=== PATIENT | male | born 2000 | race Caucasian/White ===

== ENCOUNTER 2023-07-20 16:22 | Emergency (ER) | payer OTHER, SELFPAY ==
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
--- NOTE | ~2023-07-20 | XR_ITS ---
EXAM: XR thoracic spine 3V DATE: 07/20/2023 18:37 HISTORY: mid back pain . COMPARISON: None available. FINDINGS: Mild spinal asymmetry. Vertebral body alignment intact. Vertebral body heights preserved. No disc space narrowing. No traumatic malalignment or fracture. Visualized lung parenchyma is clear. IMPRESSION: No acute or chronic fracture or traumatic malalignment detected in the thoracic spine. Reviewed, dictated and finalized at location K.
[2023-07-20 16:25] VITALS: BP 161/81; PULSE 83; RESP 18; TEMP 36.2; O2SAT 99
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
== END 2023-07-20 19:05 | disposition home or self-care (01) ==
LOC: ANHED 19:08
PROVIDERS: Emergency Provider Physician Assistant
DX: M54.6 Pain in thoracic spine (principal)
CPT/HCPCS: 72040; 72072; 99283

== ENCOUNTER 2023-10-20 07:48 | Emergency (ER) | payer SELFPAY ==
[2023-10-20 07:53] VITALS: BP 144/119; PULSE 68; RESP 16; TEMP 36.7; O2SAT 100
--- NOTE | 2023-10-20 08:29 | ED.ALLEREA ---
HPI - Allergic Reaction General Chief complaint: Allergic Reaction Stated complaint: possible allergic reaction History of Present Illness HPI narrative: 23-year-old male presenting emergency department for evaluation for a suspected allergic reaction. Patient states at approximately 6:00 a.m. he had some wheat thins and some humus and afterwards started feeling he is having some throat swelling. Patient has no prior history of allergic reactions to food, has had both of these foods previously but does states it is a new brand of humus. Patient denies any new medications, new perfumes, new detergents. Patient states he did take a half a p.o. Benadryl and did begin to feel improved. Patient denies any other significant past medical history. Related Data Allergies Allergy/AdvReac Type Severity Reaction Status Date / Time No Known Allergies Allergy Verified 07/20/23 16:28 Review of Systems Review of Systems: All systems reviewed & are unremarkable except as noted in HPI and below Exam Narrative: APPEARANCE: Well appearing, no pain, no distress, well-nourished. HEAD: normocephalic, atraumatic. EYES: PERRLA/EOMI, conjunctivae clear. NOSE: Normal no drainage EARS:TMS clear with good light reflex. THROAT: Pharynx clear, no exudate. NECK: Supple. No adenopathy, no masses. RESPIRATORY: Airway patent, respirations nonlabored. Clear to auscultation bilaterally, no rales, rhonchi, wheezing. CARDIOVASCULAR: Regular rate and rhythm without murmurs rubs or gallops. ABDOMINAL: Soft, nontender, nondistended, normal bowel sounds MUSCULOSKELETAL: Moves all extremities. Strength/ROM intact, No edema, No calf tenderness. NEURO: Alert. Cranial nerves II through XII intact. Grossly intact SKIN: Warm, dry. Normal Color Course Course Emergency Course: Patient felt improved with treatment. Vital Signs Vital signs: Vital Signs Temperature 98.0 F 10/20/23 07:53 Pulse Rate 68 10/20/23 07:53 Respiratory Rate 16 10/20/23 07:53 Blood Pressure 144/119 H 10/20/23 07:53 Pulse Oximetry 100 10/20/23 07:53 Oxygen Delivery Room Air 10/20/23 07:53 Temperature 98.0 F 10/20/23 07:53 Pulse Rate 68 10/20/23 07:53 Respiratory Rate 16 10/20/23 07:53 Blood Pressure 144/119 H 10/20/23 07:53 Pulse Oximetry 100 10/20/23 07:53 Oxygen Delivery Room Air 10/20/23 07:57 MDM - Allergic Reaction MDM Narrative Medical decision making narrative: 23-year-old male presenting to the emergency department for evaluation for suspected allergic reaction. Patient declined steroids but was willing to try additional Benadryl. Patient states he does feel significantly improved compared to this morning. Patient denies any difficulty breathing or swallowing during the exam and patient had no tongue swelling, lip swelling or hives. On re-evaluation patient states that he does feel significantly improved. Patient was advised to take a weight appropriate dose of Benadryl. Patient declined steroids. Differential Diagnosis Differential diagnosis: Likely anaphylaxis, allergic reaction, angioedema, contact dermatitis, adverse reaction to drug, viral enanthem and urticaria Discharge Plan Discharge Clinical Impression: Allergic reaction Patient Disposition: Home, Self-Care Condition: Stable Instructions: Antibiotic Form, General Allergic Reaction (ED) Additional Instructions: Benadryl as needed for hives or itching. Be aware of any new foods, detergents or soaps or medications. Have close follow-up with your primary care physician. If you have any worsening symptoms and please call or return to the emergency department. Prescriptions: No Action cyclobenzaprine 10 mg tablet 10 mg PO HS PRN (Reason: muscle spasm) Qty: 10 0RF Follow-up/Referrals: UNKNOWN,DOCTOR [Primary Care Provider] -
[2023-10-20] MEDS: diphenhydrAMINE HCl INJ 50 MG/ML VIAL 25 MG IV PUSH (08:53)
== END 2023-10-20 10:11 | disposition home or self-care (01) ==
PROVIDERS: Emergency Provider Emergency Medicine
DX: T78.40XA Allergy, unspecified, initial encounter (principal); X58.XXXA Exposure to other specified factors, initial encounter
CPT/HCPCS: 96374; 99284; J1200

== ENCOUNTER 2024-03-12 02:21 | Emergency (ER) | payer OTHER, SELFPAY ==
--- NOTE | ~2024-03-12 | CT_ITS ---
EXAMINATION: CT abdomen pelvis w con DATE: 03/12/2024 04:09 INDICATION: Left lower quadrant abdominal pain TECHNIQUE: Computed tomography (CT) of the abdomen and pelvis was performed with 100 mL Omnipaque-350 intravenous contrast. Automated exposure control and iterative reconstruction technique were employe d. The dose-length product was 1207.13 mGy-cm. COMPARISON: None FINDINGS: Minimal atelectasis in the dependent lower lobes. Heart size is normal. No pericardial or pleural eff usion. Liver, gallbladder, spleen, pancreas, bilateral adrenal glands and kidneys are normal. Bowels including the appendix are normal. Bladder is normal. No free intraperitoneal gas or fluid. No pathol ogically enlarged abdominal or pelvic lymphadenopathy. A few Schmorl's nodes in the lumbar and lower thoracic spine. IMPRESSION: 1. No acute intra-abdominal/pelvic process. Reviewed, dictated and finalized at location A. [employer]
[2024-03-12 02:21] VITALS: BP 193/100; PULSE 87; RESP 14; TEMP 37.2; O2SAT 98
[2024-03-12] MEDS: SODIUM CHLORIDE 0.9% IV 1,000 ML 999 ML IV CONT (03:05)
[2024-03-12 03:23] LABS: Basophils Absolute Auto 0.1 K/mm3 (0.0-0.1); Basophils Percent Auto 0.7 % (0.2-1.2); Eosinophils Absolute Auto 0.3 K/mm3 (0-0.3); Eosinophils Percent Auto 2.6 % (0-4.4); Hematocrit 43.4 % (42.0-52.0); Hemoglobin 15.5 g/dL (14.0-18.0); Immature Granulocyte Absolute 0.12 K/mm3 (0.00-0.031); Immature Granulocyte Percent A 1.2 % (0-0.5); Lymphocytes Absolute Auto 1.65 K/mm3 (0.9-3.2); Mean Corpuscular HGB Conc 35.7 g/dl (32-36); Mean Corpuscular Volume 86.8 fl (80-100); Mean Platelet Volume 10.5 fl (7.4-10.4); Monocytes Absolute Auto 1.2 K/mm3 (0.1-0.6); Monocytes Percent Auto 11.8 % (2.6-8.5); Neutrophils Absolute Auto 6.5 K/mm3 (1.3-6.7); Neutrophils Percent Auto 66.7 % (45.5-73.1); Platelet Count Result 225 k/mm3 (150-375); Red Cell Distribution Width 12.6 % (11.5-14.5); White Blood Count 9.7 K/mm3 (4.5-10.0)
[2024-03-12 03:30] LABS: Add Urine Microscopic? NO; Appearance Urine Clear (Clear); Bilirubin Urine Negative (Negative); Blood Urine Negative (Negative); Color Urine Yellow (Yellow); Glucose Urine UA Negative (Negative); Ketones Urine Trace mg/dL (Negative); Leukocyte Esterase Ur Negative LEU/UL (Negative); Nitrate Urine Negative (Negative); Protein Urine Negative (Negative); Specific Grav Ur 1.018 (1.001-1.035); Urobilinogen Urine 0.2 mg/dL (<2.0); pH Urine 5.5 (5.0-9.0)
[2024-03-12 03:32] LABS: Alanine Aminotransferase 29 U/L (6-50); Albumin Level 4.4 g/dL (3.5-5.1); Alkaline Phosphatase 53 U/L (38-126); Anion Gap 3 mmol/L (4-12); Aspartate Amino Transferase 28 U/L (17-59); Bilirubin,Total 0.5 mg/dL (0.2-1.3); Blood Urea Nitrogen 10 mg/dL (9-20); Calcium 9.1 mg/dL (8.4-10.2); Carbon Dioxide 27 mmol/L (22-30); Chloride 106 mmol/L (98-107); Estimated CRCL calculation 148 ml/min; Estimated Glomerular Filt Rate > 60; Glucose 108 mg/dL (65-110); Lipase 71 U/L (23-300); Potassium 3.9 mmol/L (3.4-5.0); Sodium 136 mmol/L (137-145)
[2024-03-12 03:34] LABS: INR 1.1; Partial Thromboplastin Time 24.3 Seconds (22.3-36.8); Prothrombin Time 14.7 Seconds (11.1-14.7)
--- NOTE | 2024-03-12 03:34 | ED_ITS ---
HPI - General Adult General Chief complaint: Extremity Problem,Nontraumatic Stated complaint: L hip pain Time Seen by Provider: 03/12/24 02:25 History of Present Illness HPI narrative: Patient is a 19 for old gentleman who presents emergency department chief complaint of left groin/hip pain. The patient reports that he has had no trauma reports that he little bit of drinking this evening and reports that he had sudden onset of sharp pain in his left hip area patient states the pain is in the left inguinal area and radiates into the left anterior thigh. Patient reports no numbness or tingling denies footdrop denies pain in his foot. Related Data Allergies Allergy/AdvReac Type Severity Reaction Status Date / Time No Known Allergies Allergy Verified 07/20/23 16:28 Review of Systems 2 Review of Systems: A 10 system review of systems was completed on the patient and is negative except for what is stated in the HPI. Nursing and ancillary documentation was reviewed. Exam 2 Narrative: GENERAL: Well-appearing, well-nourished, and in no acute distress. HEAD: Normocephalic, atraumatic. EYES: PERRLA and EOMI. ENT: Nares clear, no rhinorrhea or epistaxis. Mucous membranes moist. NECK: Supple. CHEST: Clear to auscultation. No respiratory distress. HEART: Regular rate and rhythm. No murmur heard. Normal peripheral pulses. ABDOMEN: Soft, tenderness to palpation left lower quadrant/inguinal area no appreciable mass, nondistended, normal active bowel sounds. EXTREMITIES: Normal range of motion tenderness in the left anterior thigh. No edema. Intact dorsalis pedis pulse intact sensory distal SKIN: Warm, dry, no rash. NEURO: No focal deficits. Alert and oriented x3. PSYCH: Normal mood and affect. Course Vital Signs Vital signs: Vital Signs Temperature 37.2 C 03/12/24 02:21 Pulse Rate 87 03/12/24 02:21 Respiratory Rate 14 03/12/24 02:21 Blood Pressure 193/100 H 03/12/24 02:21 Pulse Oximetry 98 03/12/24 02:21 Oxygen Delivery Room Air 03/12/24 02:21 Temperature 37.2 C 03/12/24 02:21 Pulse Rate 71 03/12/24 05:28 Respiratory Rate 14 03/12/24 05:28 Blood Pressure 136/94 H 03/12/24 05:28 Pulse Oximetry 97 03/12/24 05:28 Oxygen Delivery Room Air 03/12/24 02:21 Medical Decision Making MDM Narrative Medical decision making narrative: Differential diagnosis includes growing strain, DVT, abscess, hernia, D-dimer was negative The patient has intact pulses in the lower extremity CT scan of the abdomen pelvis including the inguinal area shows no fat stranding in the groin no hernia no abscess Patient will be placed on anti-inflammatories and muscle relaxers the patient should follow-up with his primary care provider Vital Signs Vital Signs: Vital Signs Temperature 37.2 C 03/12/24 02:21 Pulse Rate 87 03/12/24 02:21 Respiratory Rate 14 03/12/24 02:21 Blood Pressure 193/100 H 03/12/24 02:21 Pulse Oximetry 98 03/12/24 02:21 Oxygen Delivery Room Air 03/12/24 02:21 Temperature 37.2 C 03/12/24 02:21 Pulse Rate 71 03/12/24 05:28 Respiratory Rate 14 03/12/24 05:28 Blood Pressure 136/94 H 03/12/24 05:28 Pulse Oximetry 97 03/12/24 05:28 Oxygen Delivery Room Air 03/12/24 02:21 Lab Data 03/12/24 03:17 03/12/24 03:17 Labs: Lab Results 03/12/24 Range/Units 03:17 WBC 9.7 (4.5-10.0) K/mm3 RBC 5.00 (4.6-6.20) M/mm3 Hgb 15.5 (14.0-18.0) g/dL Hct 43.4 (42.0-52.0) % MCV 86.8 (80-100) fl MCH 31.0 (26-34) pg MCHC 35.7 (32-36) g/dl RDW 12.6 (11.5-14.5) % Plt Count 225 (150-375) k/mm3 MPV 10.5 H (7.4-10.4) fl Immature Gran % (Auto) 1.2 H (0-0.5) % Neut % (Auto) 66.7 (45.5-73.1) % Lymph % (Auto) 17.0 L (18.3-44.2) % Hamilton % (Auto) 11.8 H (2.6-8.5) % Eos % (Auto) 2.6 (0-4.4) % Baso % (Auto) 0.7 (0.2-1.2) % Lymph # (Auto) 1.65 (0.9-3.2) K/mm3 Hamilton # (Auto) 1.2 H (0.1-0.6) K/mm3 Eos # (Auto) 0.3 (0-0.3) K/mm3 Baso # (Auto) 0.1 (0.0-0.1) K/mm3 Abs Immat Gran (auto) 0.12 H (0.00-0.031) K/mm3 Absolute Neuts (auto) 6.5 (1.3-6.7) K/mm3 Absolute Nucleated RBC 0.000 (0.0-0.012) K/mm3 Nucleated RBC % 0.0 (0.0-0.2) % PT 14.7 (11.1-14.7) Seconds INR 1.1 APTT 24.3 (22.3-36.8) Seconds D-Dimer < 0.27 (<0.48) ug/mL Sodium 136 L (137-145) mmol/L Potassium 3.9 (3.4-5.0) mmol/L Chloride 106 (98-107) mmol/L Carbon Dioxide 27 (22-30) mmol/L Anion Gap 3 L (4-12) mmol/L BUN 10 (9-20) mg/dL Creatinine 0.80 (0.7-1.3) mg/dL Estim Creat Clear Calc 148 ml/min Estimated GFR > 60 (59 - ) Glucose 108 (65-110) mg/dL Calcium 9.1 (8.4-10.2) mg/dL Magnesium 2.0 (1.6-2.3) mg/dL Total Bilirubin 0.5 (0.2-1.3) mg/dL AST 28 (17-59) U/L ALT 29 (6-50) U/L Alkaline Phosphatase 53 (38-126) U/L Total Protein 7.0 (6.3-8.2) g/dL Albumin 4.4 (3.5-5.1) g/dL Lipase 71 (23-300) U/L Urine Color Yellow (Yellow) Urine Appearance Clear (Clear) Urine pH 5.5 (5.0-9.0) Ur Specific Midnight 1.018 (1.001-1.035) Urine Protein Negative (Negative) mg/dL Urine Glucose (UA) Negative (Negative) mg/dL Urine Ketones Trace H (Negative) mg/dL Ur Blood (Man) Negative (Negative) Urine Nitrate Negative (Negative) Urine Bilirubin Negative (Negative) Urine Urobilinogen 0.2 (<2.0) mg/dL Leukocyte Esterase Rfl Negative (Negative) JACQUELINE/UL Discharge Plan Discharge Clinical Impression: Strain of left groin Patient Disposition: Home, Self-Care Condition: Stable Instructions: Antibiotic Form, Groin Strain (ED) Patient Language: Danish Prescriptions: New cyclobenzaprine 10 mg tablet 10 mg PO TID PRN (Reason: muscle spasm) Qty: 21 0RF diclofenac potassium 50 mg tablet 50 mg PO TID PRN (Reason: pain) Qty: 30 0RF No Action cyclobenzaprine 10 mg tablet 10 mg PO HS PRN (Reason: muscle spasm) Qty: 10 0RF Follow-up/Referrals: Henri Chirinos MD [Physician] - UNKNOWN,DOCTOR [Primary Care Provider] - Time of Disposition: 07:06
[2024-03-12 03:57] LABS: D Dimer < 0.27 ug/mL (<0.48)
[2024-03-12 05:28] VITALS: BP 136/94; PULSE 71; RESP 14; O2SAT 97
--- OUTSIDE RECORDS SUMMARY | 2024-03-19 02:04 | XMS_ITS | Continuity of Care Document ---
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 T1) [facility]([place] T1) OUTPATIENT [id number] LEFT KNEE AND BACK ISSUES WORSE X3DAYS ALEXA OLIVERA 03/02 Released w/o Limitations [facility]([place] T1) [facility](Pulmona ry NMCP) OUTPATIENT [id number] Encount er for other adminis trative examina tions XAVIER CHAUDHRY 03/22 Released w/o Limitations [facility](Pul monary NMCP) [facility](Pulmona ry NMCP) OUTPATIENT [id number] Encount er for other adminis trative examina tions ZANDER MILLER 03/22 Released w/o Limitations [facility](Pul monary NMCP) [facility](Neurolo gy NMCP) OUTPATIENT [id number] [facility] er for other adminis trative examina tions GARDENIA CARBONE 04/05 Released w/o Limitations [facility](Alfredo rology NMCP) [facility](Pulmona ry NMCP) OUTPATIENT [id number] ZANDER CERVANTES 04/07 Released w/o Limitations [facility](Pul monary NMCP) [facility](Pulmona ry NMCP) TELE CONSULT [id number] Notes Entered by: ZANDER MILLER 07 Apr 2018 1012 ------- ------- ------- ------- -- Yingach oline test ZANDER MILLER 04/07 [facility](Pul monary NMCP) [facility](Neurolo gy NMCP) TELE CONSULT [id number] Notes Entered by: NATALIE MILLAN 12 Apr 2018 1603 ------- ------- ------- ------- -- Pt needs GARDENIA Medina 04/12 [facility](Alfredo rology NMCP) [facility](Neurolo gy NMCP) TELE CONSULT [id number] Notes Entered by: CARA SALAZAR 25 Apr 2018 1407 ------- ------- ------- ------- -- Pt request humberto tovar GARDENIA Williamson 04/25 [facility](Alfredo rology NMCP) [facility](Emergen cy Medicine NMCP) OUTPATIENT [id number] RACHELLE MONTAÑO 05/03 Released w/o Limitations [facility](Cheyanne rgency Medicin e NMCP) [facility](Neurolo gy NMCP) TELE CONSULT [id number] Notes Entered by: Kishor CARBONE 12 Jul 2018 1107 ------- ------- ------- ------- -- TBI GARDENIA CARBONE 07/12 [facility](Alfredo rology NMCP) [facility](Emergen cy Medicine MSCP) OUTPATIENT [id number] JOSEPH ARMENTA 08/16 Released w/o Limitations [facility](Cheyanne rgency Medicin e NMCP) [facility] [place] T1) TELE CONSULT [id number] Notes Entered by: DEEPAK RINCON 16 Aug 2018 1317 ------- ------- ------- ------- -- Nurse advice line on 08/15/18 cough and wheeze and NMCP ER ON 08/16/18 DEEPAK RINCON 08/16 Other Not Elsewhere Classified [facility](Emergen Medicine MSCP) OUTPATIENT [id number] SABRA GOVINDKassie 04/24 Released w/o Limitations [facility](Cheyanne rgency Medicin e NMCP) [facility] [place] T1) OUTPATIENT [id number] f/u er acute prostat itis FLORENTIN MAXWELL 04/27 Released w/o Limitations [facility] [place] T1) [facility] OUTPATIENT [id number] possibl e thrush/ sore throat FLORENTIN MAXWELL 05/04 Released w/o Limitations [facility] [place] T1) [facility] [place] T1) OUTPATIENT [id number] F/U FOR KIDNEYS (REQUES TING REFERRA L FOR A NEPHROL OGIST) BIJAN RENTERIA 05/16 Released w/o Limitations [facility] [place] T1) [facility](Urology MSCP) OUTPATIENT [id number] Persona l history of urinary calculi LEÓN PONCE 05/22 Released w/o Limitations [facility](Uro logy NMCP) [facility](Emergen cy Medicine NMCP) OUTPATIENT [id number] NANCY ARMENTAH ELPIDIOGORDO 06/05 Released w/o Limitations [facility](Cheyanne rgency Medicin e NMCP) [facility] [place] T1) TELE CONSULT [id number] Notes Entered by: Chen FUENTES 06 Jun 2019 1015 ------- ------- ------- ------- -- NMCP ER 06/05/19 20 Chest Pain LESLIE FUENTES 06/05 Other Not Elsewhere Classified [facility] [place] T1) [facility] [place] T1) OUTPATIENT [id number] SCAN FOR PREVIOU S TBI AND US OF KIDNEYS FOR REENLIS TMENT ALEXA OLIVERA 07/10 Released w/o Limitations [facility] [place] T1) [facility] [place] T1) TELE CONSULT [id number] Notes Entered by: SRIDHAR WHITE 09 Aug 2019 1255 ------- ------- ------- ------- -- REQUEST ING CT SCAN RESULTS PATRICK VALDIVIA 08/08 Released to Self Care [facility] [place] T1) [facility] [place] T1) TELE CONSULT [id number] Notes Entered by: MACO REYES 18 Aug 2019 1445 ------- ------- ------- ------- -- WANTS A CALL BACK TO DISCUSS CT SCAN REPORT AND ULTRASO UND FROM SEPTEMBER 01 ZAK CHACKO 08/17 Referred for Appointment [facility] [place] T1) [facility] [place] T1) OUTPATIENT [id number]/US results , paper work for [facility] ALEXA OLIVERA 08/20 Released w/o Limitations [facility] T1) [facility] T1) OUTPATIENT [id number] MEDICAL CLEARAN CE FOR ENLISTM ENT IN [employer] GUTIERREZ WESLEY 11/28 Released w/o Limitations [facility] T1) [facility] T1) OUTPATIENT [id number] needs documen tation for clearan [facility] FLORENTIN MAXWELL 01/01 Released w/o Limitations [facility] T1) [facility](Emergen cy Medicine NMCP) OUTPATIENT [id number] RACHELLE MONTAÑO 02/04 Released w/o Limitations [facility](Cheyanne rgency Medicin e NMCP) [facility] T1) TELE CONSULT [id number] Notes Entered by: Lisette GAMING 06 Feb 2020 1500 ------- ------- ------- ------- -- NMCP ER 020 ft-dysp mary arce NATHALIE D 02/05 Other Not Elsewhere Classified [facility] T1) [facility] T1) OUTPATIENT [id number] CHEST CONGEST ION, NO COVID, ANTIBIO TICS NOT WORKING . PER GUTIERREZ PEDRO 02/08 Released w/o Limitations [facility] T1) [facility](Emergen cy Medicine NMCP) OUTPATIENT [id number] MARK HALL 04/01 Released w/o Limitations [facility](Cheyanne rgency Medicin e NMCP) [facility] T1) TELE CONSULT [id number] Notes Entered by: Lisette GAMING 02 Apr 2020 1014 ------- ------- ------- ------- -- NAL 04/01/19 21 TESTICL E PAIN NMCP ER Scrotal varicoc JERSON Dickson 04/02 Other Not Elsewhere Classified [facility] T1) [facility] T1) OUTPATIENT [id number] Kidney Pain possibl e kidney stones ZAK CHACKO Jeremy 06/07 Released w/o Limitations [facility] T1) [facility] T1) OUTPATIENT [id number] GUTIERREZ Pruett 06/25 Released w/o Limitations [facility] T1) [facility](Immuniz ation [place]) OUTPATIENT [id number] Notes Entered by: JOCELYNE WADDELL 25 Jun 2020 1145 ------- ------- ------- ------- -- PPD JOCELYNE JOHANSEN 06/25 Released w/o Limitations [facility](Imm unizati on [place]) [facility] h(Immuniz ation [place]) OUTPATIENT [id number] Notes Entered by: JOCELYNE WADDELL 27 Jun 2020 1353 ------- ------- ------- ------- -- Afluria 0.5 JOCELYNE JOHANSEN 06/27 Released w/o Limitations [facility](Imm unizati on [place]) [facility] [facility](Immuniz ation [place]) OUTPATIENT [id number] Notes Entered by: JOCELYNE WADDELL 02 Jul 2020 1302 ------- ------- ------- ------- -- PPD JOCELYNE JOHANSEN 07/02 Released w/o Limitations [facility](Imm unizati on [place]) [facility] [place] [facility](Emergen cy Medicine NMCP) OUTPATIENT [id number] ADALGISA VALADEZ 08/01 Released w/o Limitations [facility]([place]yanne rgency Medicin e NMCP) [facility] [place] T1) TELE CONSULT [id number] Notes Entered by: Lisette GAMING 05 Aug 2020 1420 ------- ------- ------- ------- -- NMCP ER 08/02/19 21 [place] LESION OF R GLENOID ;JERSON ROMERO 08/05 Other Not Elsewhere Classified [facility](Emergen cy Medicine NMCP) OUTPATIENT [id number] JUDITH CUBA 11/16 Released w/o Limitations [facility] [facility] Medicin e NMCP) [facility] TELE CONSULT [id number] Notes Entered by: Lisette GAMING 21 Nov 2020 1149 ------- ------- ------- ------- -- NMCP ER 1 chest pain, COVID; JERSON GAMING 11/21 Other Not Elsewhere Classified [facility](Emergen cy Medicine NMCP) OUTPATIENT [id number] JUDITH CUBA 11/25 Released w/o Limitations [facility](Cheyanne rgency Medicin e NMCP) [facility](Emergen cy Medicine NMCP) OUTPATIENT [id number] ROCCO WYLIE 11/27 Released w/o Limitations [facility](Cheyanne rgency Medicin e NMCP) [facility] [place] T1) TELE CONSULT [id number] Notes Entered by: Lisette GAMING 27 Nov 2020 1522 ------- ------- ------- ------- -- NMCP ER 11/26/19 21 dyspnea , palpita tions; JERSON GAMING 11/27 Other Not Elsewhere Classified [facility] T1) [facility] [place](Cardiol ogy NMCP) OUTPATIENT [id number] PROC INPATIE NT ECHO ARON ARAMBULA 11/27 Released w/o Limitations [facility] [place](Car diology NMCP) [facility] [place](Cardiol ogy NMCP) OUTPATIENT [id number] Notes Entered by: TERRELL KRUGER 27 Nov 2020 1826 ------- ------- ------- ------- -- ED Evaluat ion ARON ARAMBULA 11/27 Released with Work/Duty Limitations [facility] [place](Car [facility] NMCP) [facility] [place](Cardiol ogy NMCP) TELE CONSULT [id number] Notes Entered by: SRIDHAR DIAS 28 Nov 2020 1033 ------- ------- ------- ------- -- HEART MONITOR GIGI WEINSTEIN 11/28 Other Not Elsewhere Classified [facility](Car diology NMCP) [facility] [place](Emergen cy Medicine NMCP) OUTPATIENT [id number] JOSEPH ARMENTA 11/30 Released w/o Limitations [facility]([place] rgency Medicin e NMCP) [facility] [place] [facility] T1) TELE CONSULT [id number] Notes Entered by: Chen FUENTES 02 Dec 2020 1412 ------- ------- ------- ------- -- NMCP ER 11/28/19 21 SOB LESLIE FUENTES JENNIFER 12/02 Other Not Elsewhere Classified [facility] T1) [facility] [place] [facility](Emergen Medicine NMCP) OUTPATIENT [id number] GERARD RIGGS 12/20 Released w/o Limitations [facility]([place] rgency Medicin e NMCP) [facility](Cardiol ogy NMCP) TELE CONSULT [id number] Notes Entered by: BERNADETTE MARQUEZ 24 Dec 2020 1012 ------- ------- ------- ------- -- WAIT LIST SCHED ROSEMARY PHILIP 12/24 Other Not Elsewhere Classified [facility](Car diology NMCP) [facility] [place] T1) TELE CONSULT [id number] Notes Entered by: Lisette GAMING 24 Dec 2020 1426 ------- ------- ------- ------- -- NMCP ER 12/21/19 21 LWBS; irregul ar heart rate JERSON GAMING 12/24 Other Not Elsewhere Classified [facility] [place] T1) [facility] h(Cardiol ogy NMCP) OUTPATIENT [id number] Notes Entered by: HIRO GARCIA 07 Jan 2021 1010 ------- ------- ------- ------- -- Heart Monitor Report DIANE LIEBERMAN 01/07 Released w/o Limitations [facility](Car diology NMCP) [facility] [facility](Int Med [facility] NMCP) TELE CONSULT [id number] Notes Entered by: GABI CASTRO 27 Jan 2021 0245 ------- ------- ------- ------- -- ED GABI Maxwell 01/27 Referred for Appointment [facility](Int Med [facility] NMCP) [facility](Emergen cy Medicine NMCP) OUTPATIENT [id number] NIYAVINOD RIGGS ALTAF 01/27 Released w/o Limitations [facility]([place] rgency Medicin e NMCP) [facility] [place] T1) TELE CONSULT [id number] Notes Entered by: Lisette GAMING 28 Jan 2021 1326 ------- ------- ------- ------- -- NMCP ER 021 JERSON Varela 01/28 Other Not Elsewhere Classified [facility] [place] T1) [facility](Cardiol ogy NMCP) OUTPATIENT [id number] FTR IN PERSON ARON ARAMBULA 01/30 Released w/o Limitations [facility](Car diology NMCP) [facility](Cardiol ogy NMCP) OUTPATIENT [id number] Notes Entered by: HIRO GARCIA 23 Apr 2021 1310 ------- ------- ------- ------- -- Heart Monitor Report ENEDINA GORMAN 04/23 Released w/o Limitations [facility](Car diology NMCP) 8862C-[place]art[place] MEPS Outside Documentat ion Only [id number] 01/09 Discharge Disposition: Home or Self Care 8862C-S t Bj MEPS 8862C-[place] MEPS Between Visit [id number] 01/09 Discharge Disposition: Home or Self Care 8862C-S t Bj MEPS 8862C-[place] MEPS [place] Readiness [id number] 01/31 Discharge Disposition: Released Without Limitations [id number] t Bj MEPS [facility] MEPS Between Visit [id number] 02/024 Discharge Disposition: Home or Self Care [facility]S [facility] Procedures Combined list of: 1) Procedures from Department of Veterans Affairs facilities going back up to thelast 18 months, not all VA non-surgical procedures are included; 2) All procedures from the Department of Defense facilities. Procedure Procedure Type Code Date Perfomer Comments Sourc e No data available for this section [facility] Psychometric Neuropsychological Testing Battery Each Additional Hour Psychometric Neuropsychologica l Testing Battery Each Additional Hour 67660 08/09 RANJAN MENDOZA [facility] Psychometric Neuropsychological Testing Battery Initial Hour Psychometric Neuropsychologica l Testing Battery Initial Hour 57770 08/09 RANJAN MENDOZA [facility] Psychometric Neuropsych Testing Battery Admin By Computer Psychometric Neuropsych Testing Battery Admin By Computer 38555 07/21 MARY MORRELL was administered the: MMPI-2 RF (60) [facility] Psychometric Neuropsych Test Battery Admin By Dining Services Director Each Additional 30 Mins Psychometric Neuropsych Test Battery Admin By Dining Services Director Each Additional 30 Mins 43363 07/21 MARY MORRELL was administered the: Riley Naming (15), Category (45), CVLT-II (45), DVT (20), Grooved Pegs (10), Hand Dynamometer (5), Sensory Perceptual (25), [place] Making (15), WAIS-IV (135), Word Fluency (15), Word Choice (15) and finished WMS-IV (exclusion of VPA) (75). Total 7.05 hours of administration and scoring time. [facility] Psychometric Neuropsych Testing Battery Admin By Dining Services Director Initial 30 Minutes Psychometric Neuropsych Testing Battery Admin By Dining Services Director Initial 30 Minutes 99677 07/21 MARY MORRELL was administered the: TOPF (15), WMS-IV (75) [facility] Neurobehavioral Status Exam Each Additional Hour Neurobehavioral Status Exam Each Additional Hour 58521 07/20 RANJAN MENDOZA [facility] Neurobehavioral Status Exam Initial Hour Neurobehavioral Status Exam Initial Hour 81160 07/20 RANJAN MENDOZA [facility] Bronchial Challenge With Methacholine Bronchial Challenge With Methacholine 24594 04/07 ZANDER MILLER [facility] Spirometry Spirometry 32863 03/22 AKIKO BURNHAM [facility] Health And Behav A e mt Each 15 Min Initial A e ment Health And Behav Assessmt Each 15 Min Initial Assessment 36800 10/04 SONIA WATSON 90 min DoD Health And Behav A e mt Each 15 Min Initial A e ment Health And Behav Assessmt Each 15 Min Initial Assessment 45010 09/07 ARLEY MODI 30 minute evaluation [facility] Audiometry Group Testing Audiometry Group Testing 09856 09/07 MYNOR CHAVEZ Threshold Audiogram (Pure Tone) Threshold Audiogram (Pure Tone) 78119 09/07 MYNOR CHAVEZ Determination Of Refractive State Determination Of Refractive State 45860 09/07 ISAURO SMITH [facility] Visual Function Screening Visual Function Screening 35894 09/07 SMITHISAURO LUNDBERG [facility] Psychometric Emotional / Behavioral A e ment Psychometric Emotional / Behavioral Assessment 85100 10/23 MAYRA CHAPARRO Screening Test Of Visual Acuity, Quantitative, Bilateral Screening Test Of Visual Acuity, Quantitative, Bilateral 13687 10/23 MAYRA CHAPARRO [facility] Spirometry Spirometry 98300 10/23 MARINE MOSCOSOE [place] [facility] Pulse Oximetry Pulse Oximetry 43435 10/23 DANIS MICKY L [facility] Medication Management By Pharmacist Initial 15 Minutes New Patient Medication Management By Pharmacist Initial 15 Minutes New Patient 17458 10/23 ADELA MOSCOSOCIE L [facility] Medication Management By Pharmacist Each Additional 15 Minutes Medication Management By Pharmacist Each Additional 15 Minutes 34425 10/23 DANIS MICKY L [facility] Non-Physician Phone Call To Patient/Provider Brief (5-10min) Non-Physician Phone Call To Patient/Provider Brief (5-10min) 66820 10/14 ANAYA PIZARRO [facility] Diagnostic Colonoscopy Fiberoptic With Biopsy Diagnostic Colonoscopy Fiberoptic With Biopsy 06732 10/09 RAFFI STEIN [facility] Duodenoscopy With Biopsy Multiple Duodenoscopy With Biopsy Multiple 29558 10/09 RAFFI STEIN [facility] Non-Physician Phone Call To Patient/Provider Brief (5-10min) Non-Physician Phone Call To Patient/Provider Brief (5-10min) 77019 10/05 RAFFI STEIN [facility] Determination Of Refractive State Determination Of Refractive State 61878 04/21 STEFANIE ROSSI [facility] Ophthalmological Prior Patient Start Comprehensive Care Ophthalmological Prior Patient Start Comprehensive Care 01468 04/21 STEFANIE ROSSI [facility] Modalities Cryotherapy Cold Packs Modalities Cryotherapy Cold Packs 45076 04/15 HIRO LIVINGSTON [facility] Non-Physician Phone Call To Patient/Provider Brief (5-10min) Non-Physician Phone Call To Patient/Provider Brief (5-10min) 94535 02/17 CLYDE ALAS Crutches, underarm, other than wood, adjustable or fixed, pair, with pads, tips and handgrips 12/24 OLEG HAWKINS [facility] Walking boot, non-pneumatic, with or without joints, with or without interface material, prefabricated item that has been trimmed, bent, molded, a embled, or otherwise customized to fit a specific patient by an individual with expertise 12/24 OLEG HAWKINS [facility] Non-Physician Phone Call To Patient/Provider Brief (5-10min) Non-Physician Phone Call To Patient/Provider Brief (5-10min) 42756 11/12 JEN HUNTER [facility] Skin Test Anergy Tuberculin Intradermal Skin Test Anergy Tuberculin Intradermal 23227 10/08 FRANK FRANK IPPD; Series #: 1; .1 mL; ID; Left Arm; Mfg: [employer]; Lot: [id number]. [facility] Flexible Fiberoptic Laryngoscopy (therapeutic) Flexible Fiberoptic Laryngoscopy (therapeutic) 20791 07/29 TYRONE VILLATORO [facility] Patient ECG Event Recording - Physician Review & Interpretation Patient ECG Event Recording - Physician Review & Interpretation 74107 07/14 IVONE ORTIZ [facility] Continuous ECG External Recording For More Than 48 Hours Up To 21 Days Continuous ECG External Recording For More Than 48 Hours Up To 21 Days 66179 06/21 IVONE ORTIZ [facility] ECG 12-Lead ECG 12-Lead 3120F 05/23 IVONE ORTIZ [facility] Non-Physician Phone Call To Patient/Provider Brief (5-10min) Non-Physician Phone Call To Patient/Provider Brief (5-10min) 39369 05/15 WALDO EDMOND [facility] Non-Physician Phone Call To Patient/Provider Brief (5-10min) Non-Physician Phone Call To Patient/Provider Brief (5-10min) 80513 05/08 WALDO EDMOND [facility] Destruction Of Flat Warts By Cryosurgery Up To 14 Lesions Destruction Of Flat Warts By Cryosurgery Up To 14 Lesions 22446 04/09 CARMELITA MORENO [facility] Destruction Of Flat Warts By Cryosurgery Up To 14 Lesions Destruction Of Flat Warts By Cryosurgery Up To 14 Lesions 88155 02/05 CARMELITA MORENO [facility] Non-Physician Phone Call To Patient/Provider Brief (5-10min) Non-Physician Phone Call To Patient/Provider Brief (5-10min) 42481 01/29 PAULY NERI [facility] Tdap Vaccine Tdap Vaccine 67138 12/06 DIANE JAIME Tdap; Series #: 1; .5 mL; IM; Right Arm; Mfg: [employer]; Lot: [id number]; VIS given (Thony: 05/08/14). [facility] Meningococcal (A, C, Y, W-135) Oligosacch Diphtheria Toxoid Conj Vacc 12/06 DIANE JAIME Meningococcal MCV4O; Series #: 1; .5 mL; IM; Left Arm; Mfg: [employer]; Lot: [id number]; VIS given (Thony: 12/26/10). [facility] Immunization Administration By Injection, One Vaccine Immunization Administration By Injection, One Vaccine 17333 12/06 DIANE JAIME [facility] Immunization Administration By Injection, Each Additional Vaccine Immunization Administration By Injection, Each Additional Vaccine 16663 12/06 DIANE JAIME [facility] Electrocardiogram Electrocardiogram 34582 11/13 KEVIN BENNETT [facility] Echocardiogram Doppler Color Flow Velocity Mapping Echocardiogram Doppler Color Flow Velocity Mapping 85429 11/13 KEVIN BENNETT [facility] Echocardiogram Doppler Echocardiogram Doppler 16122 11/13 KEVIN BENNETT [facility] Echo For Congenital Cardiac Defects Complete Transthoracic Echo For Congenital Cardiac Defects Complete Transthoracic 14054 11/13 KEVIN BENNETT [facility] Services Provided On An Emergency Basis Out Of The Office Services Provided On An Emergency Basis Out Of The Office 30246 09/16 FLORENTIN OCHOA [facility] Services Requested For After Office Hours Services Requested For After Office Hours 49464 09/16 FLORENTIN OCHOA [facility] Complex Repair Of Wound Lips 2.6 to 7.5 cm Complex Repair Of Wound Lips 2.6 to 7.5 cm 01869 09/16 FLORENTIN OCHOA [facility] Transmitted Rhythm Strip ECG Interpretation And Report Transmitted Rhythm Strip ECG Interpretation And Report 18188 07/18 RAFFI SOLIS [facility] Non-Physician Phone Call To Patient/Provider Brief (5-10min) Non-Physician Phone Call To Patient/Provider Brief (5-10min) 55945 06/19 CYRSJEAN-PIERRE [facility] Chlorhexidine containing antiseptic, 1 mL 06/12 SANA PATEL [facility] Waiver services; not otherwise specified (NOS) ALEXA OLIVERA [facility] Non-Physician Phone Call To Patient/Provider Brief (5-10min) Non-Physician Phone Call To Patient/Provider Brief (5-10min) 36635 PATRICK VALDIVIA [facility] Skin Test Anergy Tuberculin Intradermal Skin Test Anergy Tuberculin Intradermal 79788 JOCELYNE JOHANSEN [facility] Screening Test Of Visual Acuity, Quantitative, Bilateral Screening Test Of Visual Acuity, Quantitative, Bilateral 43352 CARLOS RODGERS [facility] Influenza Split Virus Vaccine IM Preserv Free 0.5mL Dosage Quadrivalent Influenza Split Virus Vaccine IM Preserv Free 0.5mL Dosage Quadrivalent 54023 JOCELYNE JOHANSEN Immunization Administration By Injection, One Vaccine Immunization Administration By Injection, One Vaccine 47535 JOCELYNE JOHANSEN [facility] Echocardiogram Transthoracic 2-D With Spectral And Color Flow Doppler Echocardiogram Transthoracic 2-D With Spectral And Color Flow Doppler 80920 REJI LYLE [facility] Hemodynamics Left Ventricular Ejection Fraction > or = 40% Hemodynamics Left Ventricular Ejection Fraction > or = 40% 3022F REJI LYLE [facility] Patient ECG Event Recording - Physician Review & Interpretation Patient ECG Event Recording - Physician Review & Interpretation 57615 REJI LYLE [facility] ECG 12-Lead With Interpretation And Report ECG 12-Lead With Interpretation And Report 00926 ARON ARAMBULA [facility] HEALTH&BEHAV ASSESSMENT (EG, HEALTH-FOC CLINICAL INTERVIEW, BEHAVIORAL OBSERVATIONS, PSYCHOPHYSICOLOGIC AL MONITOR, HEALTH-ORIENT QUESTIONNAIRES), EA 15 MIN [id number] W THE PATIENT; INIT ASSESSMENT 10/04 DoD HEALTH&BEHAV ASSESSMENT (EG, HEALTH-FOC CLINICAL INTERVIEW, BEHAVIORAL OBSERVATIONS, PSYCHOPHYSICOLOGIC AL MONITOR, HEALTH-ORIENT QUESTIONNAIRES), EA 15 MIN [id number] W THE PATIENT; INIT ASSESSMENT 09/07 [facility] DETERMINATION OF REFRACTIVE STATE 09/07 [facility] PURE TONE AUDIOMETRY (THRESHOLD); AIR ONLY 09/07 DoD EXT PAT & WHEN PERF,AUTO ACT ECG RHY JAQUAN EVNT REC,SYMPT-RELAT MEM LOOP,REM DOWNLOAD CAPABILITY UP TO 30 DAYS,24-HOUR ATTENDED MON;REVIEW &INTERPRET,A PHYS/OTH QUALIFIED HEALTH RETAIL MERCHANDISER 04/23 [facility] ELECTROCARDIOGRAM, ROUTINE ECG WITH AT LEAST 12 LEADS; WITH INTERPRETATION AND REPORT 01/30 [facility] ELECTROCARDIOGRAM, ROUTINE ECG WITH AT LEAST 12 LEADS; WITH INTERPRETATION AND REPORT 01/26 DoD EXT PAT & WHEN PERF,AUTO ACT ECG RHY JAQUAN EVNT REC,SYMPT-RELAT MEM LOOP,REM DOWNLOAD CAPABILITY UP TO 30 DAYS,24-HOUR ATTENDED MON;REVIEW &INTERPRET,A PHYS/OTH QUALIFIED HEALTH RETAIL MERCHANDISER 01/07 [facility] LEFT VENTRICULAR EJECTION FRACTION (LVEF) GREATER THAN OR EQUAL TO 40% OR DOCUMENTATION NORMAL OR MILDLY DEPRESSED LEFT VENTRICULAR SYSTOLIC FUNCTION (CAD, HF) 11/27 [facility] ELECTROCARDIOGRAM, ROUTINE ECG WITH AT LEAST 12 LEADS; WITH INTERPRETATION AND REPORT 11/27 [facility] ALBUTEROL, UP TO 2.5 MG AND IPRATROPIUM BROMIDE, UP TO 0.5 MG, FDA-APPROVED FINAL PRODUCT, NON-COMPOUNDED, ADMINISTERED THROUGH DME 11/25 [facility] INTRAVENOUS INFUSION, HYDRATION; EACH ADDITIONAL HOUR (LIST SEPARATELY IN ADDITION TO CODE FOR PRIMARY PROCEDURE) 11/16 [facility] INJECTION, KETOROLAC TROMETHAMINE, PER 15 MG 08/01 [facility] SKIN TEST; TUBERCULOSIS, INTRADERMAL 07/02 [facility] IMMUNIZATION ADMINISTRATION (INCLUDES PERCUTANEOUS, INTRADERMAL, SUBCUTANEOUS, OR INTRAMUSCULAR INJECTIONS); 1 VACCINE (SINGLE OR COMBINATION VACCINE/TOXOID) 06/27 [facility] SKIN TEST; TUBERCULOSIS, INTRADERMAL 06/25 [facility] SCREENING TEST OF VISUAL ACUITY, QUANTITATIVE, BILATERAL 06/25 [facility] INJECTION, KETOROLAC TROMETHAMINE, PER 15 MG 04/01 [facility] COLLECTION OF VENOUS BLOOD BY VENIPUNCTURE 02/04 DoD TELE ASSESS & MGT SRV PROV QUAL NONPHYS HLTH CARE PRO TO EST PAT,PARENT,GUARD NOT ORIG REL ASSESS & MGT SRV PROV W/IN PREV 7 DAYS NOR LEAD ASSESS & MGT SRV/PX W/IN NXT 24 HR/SOON APT;5-10 MIN MED DIS 08/08 DoD WAIVER SERVICES; NOT OTHERWISE SPECIFIED (NOS) 07/10 [facility] ELECTROCARDIOGRAM, ROUTINE ECG WITH AT LEAST 12 LEADS; WITH INTERPRETATION AND REPORT 06/04 [facility] PRESCRIPTION DRUG, ORAL, NONCHEMOTHERAPEUTI C, NOT OTHERWISE SPECIFIED 04/23 DoD DEXAMETHASONE, ORAL, 0.25 MG 08/16 DoD NEUROPSYCH TEST EVAL SER,PHYS/OTH QUAL HCP,INTEGRAT,PT DATA,INT,STAND TEST RES&CLIN DATA,CLIN DEC TI,TX PLAN&RPT,&INTERACT FEEDBK TO PT,FAM MEM/C/G(S);EA ADD HR (LIST SEP IN ADD TO CODE FOR PRIM PX) 08/09 DoD PSYCHOLOGICAL OR NEUROPSYCHOLOGICAL TEST ADMINISTRATION, WITH SINGLE AUTOMATED, STANDARDIZED INSTRUMENT VIA ELECTRONIC PLATFORM, WITH AUTOMATED RESULT ONLY 07/21 DoD NEUROBEHAVIORAL STATUS EXAM,BY PHYS/OTH QUALIFIED HCP,BOTH [id number] TIME W THE PATIENT & TIME INTERPRETING TEST RESULTS &PREPARING THE REPORT;EACH ADD HOUR (LIST SEP IN ADD TO CODE FOR PRIM PROC) 07/20 DoD ONDANSETRON, ORAL, 4 MG (FOR CIRCUMSTANCES FALLING UNDER THE MEDICARE STATUTE, [facility]) 05/03 DoD BRONCHOSPASM PROVOCATION EVALUATION, [place] [address], WITH ADMINISTERED AGENTS (EG, ANTIGEN[S], COLD AIR, METHACHOLINE) 04/07 [facility] SPIROMETRY, INCLUDING GRAPHIC RECORD, TOTAL AND TIMED VITAL CAPACITY, EXPIRATORY FLOW RATE MEASUREMENT(S), WITH OR WITHOUT MAXIMAL VOLUNTARY VENTILATION 03/22 DoD EXT PAT & WHEN PERF,AUTO ACT ECG RHY JAQUAN EVNT REC,SYMPT-RELAT MEM LOOP,REM DOWNLOAD CAPABILITY UP TO 30 DAYS,24-HOUR ATTENDED MON;REVIEW &INTERPRET,A PHYS/OTH QUALIFIED HEALTH RETAIL MERCHANDISER 07/18 [facility] ULTRASOUND, ABDOMINAL, REAL TIME WITH IMAGE DOCUMENTATION; LIMITED (EG, SINGLE ORGAN, QUADRANT, FOLLOW-UP) 07/03 DoD ELECTROCARDIOGRAM, ROUTINE ECG WITH AT LEAST 12 LEADS; WITH INTERPRETATION AND REPORT 06/19 DoD TELE ASSESS & MGT SRV PROV QUAL NONPHYS HLTH CARE PRO TO EST PAT,PARENT,GUARD NOT ORIG REL ASSESS & MGT SRV PROV W/IN PREV 7 DAYS NOR LEAD ASSESS & MGT SRV/PX W/IN NXT 24 HR/SOON APT;5-10 MIN MED DIS 06/19 DoD UNLISTED SPECIAL SERVICE, PROCEDURE OR REPORT 06/15 DoD CHLORHEXIDINE CONTAINING ANTISEPTIC, 1 ML 06/12 DoD INFUSION, NORMAL SALINE SOLUTION , 1000 CC 05/17 DoD BRIEF EMOTIONAL/BEHAVIOR AL ASSESSMENT (EG, DEPRESSION INVENTORY, ATTENTION-DEFICIT/ HYPERACTIVITY DISORDER [ADHD] SCALE), WITH SCORING AND DOCUMENTATION, PER STANDARDIZED INSTRUMENT 10/23 DoD NONINVASIVE EAR OR PULSE OXIMETRY FOR OXYGEN SATURATION; SINGLE DETERMINATION 10/22 DoD TELE ASSESS & MGT SRV PROV QUAL NONPHYS HLTH CARE PRO TO EST PAT,PARENT,GUARD NOT ORIG REL ASSESS & MGT SRV PROV W/IN PREV 7 DAYS NOR LEAD ASSESS & MGT SRV/PX W/IN NXT 24 HR/SOON APT;5-10 MIN MED DIS 10/14 DoD COLONOSCOPY, FLEXIBLE; DIAGNOSTIC, INCLUDING COLLECTION OF SPECIMEN(S) BY BRUSHING OR WASHING, WHEN PERFORMED (SEPARATE PROCEDURE) 10/07 DoD TELE ASSESS & MGT SRV PROV QUAL NONPHYS HLTH CARE PRO TO EST PAT,PARENT,GUARD NOT ORIG REL ASSESS & MGT SRV PROV W/IN PREV 7 DAYS NOR LEAD ASSESS & MGT SRV/PX W/IN NXT 24 HR/SOON APT;5-10 MIN MED DIS 10/05 DoD INJECTION, ONDANSETRON HCL, PER 1 MG 10/01 DoD DETERMINATION OF REFRACTIVE STATE 04/21 DoD APPLICATION OF A MODALITY TO 1 OR MORE AREAS; HOT OR COLD PACKS 04/14 DoD TELE ASSESS & MGT SRV PROV QUAL NONPHYS HLTH CARE PRO TO EST PAT,PARENT,GUARD NOT ORIG REL ASSESS & MGT SRV PROV W/IN PREV 7 DAYS NOR LEAD ASSESS & MGT SRV/PX W/IN NXT 24 HR/SOON APT;5-10 MIN MED DIS 02/16 DoD CRUTCHES UNDERARM, OTHER THAN WOOD, ADJUSTABLE OR FIXED, PAIR, WITH PADS, TIPS AND HANDGRIPS 12/22 DoD TELE ASSESS & MGT SRV PROV QUAL NONPHYS HLTH CARE PRO TO EST PAT,PARENT,GUARD NOT ORIG REL ASSESS & MGT SRV PROV W/IN PREV 7 DAYS NOR LEAD ASSESS & MGT SRV/PX W/IN NXT 24 HR/SOON APT;5-10 MIN MED DIS 11/12 DoD SKIN TEST; TUBERCULOSIS, INTRADERMAL 10/07 DoD INJECTION, HYDROMORPHONE, UP TO 4 MG 08/27 DoD UNLISTED SPECIAL SERVICE, PROCEDURE OR REPORT 08/25 DoD LARYNGOSCOPY, FLEXIBLE; DIAGNOSTIC 07/28 DoD EXT PAT & WHEN PERF,AUTO ACT ECG RHY JAQUAN EVNT REC,SYMPT-RELAT MEM LOOP,REM DOWNLOAD CAPABILITY UP TO 30 DAYS,24-HOUR ATTENDED MON;REVIEW &INTERPRET,A PHYS/OTH QUALIFIED HEALTH RETAIL MERCHANDISER 07/11 DoD EXTERNAL ELECTROCARDIOGRAPH IC RECORDING FOR MORE THAN 48 HOURS UP TO 21 DAYS BY CONTINUOUS RHYTHM RECORDING AND STORAGE; INCLUDES RECORDING, SCANNING ANALYSIS WITH REPORT, REVIEW AND INTERPRETATION 06/16 DoD ELECTROCARDIOGRAM, ROUTINE ECG WITH AT LEAST 12 LEADS; INTERPRETATION AND REPORT ONLY 06/11 DoD 12-LEAD ECG PERFORMED (EM) 05/22 DoD TELE ASSESS & MGT SRV PROV QUAL NONPHYS HLTH CARE PRO TO EST PAT,PARENT,GUARD NOT ORIG REL ASSESS & MGT SRV PROV W/IN PREV 7 DAYS NOR LEAD ASSESS & MGT SRV/PX W/IN NXT 24 HR/SOON APT;5-10 MIN MED DIS 05/14 DoD TELE ASSESS & MGT SRV PROV QUAL NONPHYS HLTH CARE PRO TO EST PAT,PARENT,GUARD NOT ORIG REL ASSESS & MGT SRV PROV W/IN PREV 7 DAYS NOR LEAD ASSESS & MGT SRV/PX W/IN NXT 24 HR/SOON APT;5-10 MIN MED DIS 05/08 DoD INTRODUCTION OF NEEDLE OR INTRACATHETER, VEIN 05/07 DoD DESTRUCTION (EG, LASER SURGERY, ELECTROSURGERY, CRYOSURGERY, CHEMOSURGERY, SURGICAL CURETTEMENT), OF BENIGN LESIONS OTHER THAN SKIN TAGS OR CUTANEOUS VASCULAR PROLIFERATIVE LESIONS; UP TO 14 LESIONS 04/08 DoD DESTRUCTION (EG, LASER SURGERY, ELECTROSURGERY, CRYOSURGERY, CHEMOSURGERY, SURGICAL CURETTEMENT), OF BENIGN LESIONS OTHER THAN SKIN TAGS OR CUTANEOUS VASCULAR PROLIFERATIVE LESIONS; UP TO 14 LESIONS 02/04 DoD TELE ASSESS & MGT SRV PROV QUAL NONPHYS HLTH CARE PRO TO EST PAT,PARENT,GUARD NOT ORIG REL ASSESS & MGT SRV PROV W/IN PREV 7 DAYS NOR LEAD ASSESS & MGT SRV/PX W/IN NXT 24 HR/SOON APT;5-10 MIN MED DIS 01/28 DoD IMMUNIZATION ADMINISTRATION (INCLUDES PERCUTANEOUS, INTRADERMAL, SUBCUTANEOUS, OR INTRAMUSCULAR INJECTIONS); EACH ADDITIONAL VACCINE (SINGLE OR COMBINATION VACCINE/TOXOID) 12/05 DoD ELECTROCARDIOGRAM, ROUTINE ECG WITH AT LEAST 12 LEADS; WITH INTERPRETATION AND REPORT 11/12 DoD SERVICE(S) PROVIDED ON AN EMERGENCY BASIS, OUT OF THE OFFICE, WHICH DISRUPTS OTHER SCHEDULED OFFICE SERVICES, IN ADDITION TO BASIC SERVICE 09/15 DoD INJECTION, MORPHINE SULFATE, UP TO 10 MG 09/15 DoD Social History Combined list of available smoking, tobacco, and other social history from Department of Defense and Veterans Affairs facilities. Social History Type Response Date Comment Sourc e Male 01/28/2022 Ambulatory Pha rmacy Sexual Orientation Ambula tory Pharmacy Gender identity Ambulator y Pharmacy This section is an empty soc ial history section. DoD Assessment and Plan Combined list of future care activities from Department of Defense and Veterans Affairs facilities (e.g., assessment and plan notes, appointments, orders, and referrals). Additional future care activities may be listed in the Plan of Care section. Result Assessment and Plan Date Source Assessment and Plan Extracted from:Title : Education Note Author: ANNA SOLITARIO Date: 02/02/24 03/19/2024 Ambulatory Pharmacy Functional Status Combined list of recent functional and cognitive assessments recorded at [facility] [place] Functional [place] Measurement (FIM) Scale: 1 = Total Assistance (Subject = 0% +), 2 = Maximal Assistance (Subject = 25% +), 3 = Moderate Assistance (Subject = 50% +), 4 = Minimal Assistance (Subject = 75% +), 5 = Supervision, 6 = Modified [place] (Device), 7 = Complete [place] (Timely, Safely). Assessment Date/Time Source Assessment Type Assessment Skill Assessment Score Assessment Details No data available for this section
== END 2024-03-12 07:48 | disposition home or self-care (01) ==
PROVIDERS: Emergency Provider Emergency Medicine
DX: S39.011A Strain of muscle, fascia and tendon of abdomen, initial encounter (principal)
CPT/HCPCS: 36415; 74177; 80053; 81003; 83690; 83735; 85025; 85380; 85610; 85730; 96361; 96374; 99284; J7030; Q9967